=== PATIENT | female | born 1960 | race Caucasian/White ===

== ENCOUNTER → 2016-08-12 | Outpatient (CLI) | payer OTHER ==
[~2016-08-12] MED LIST: ANT25 PO; ATOR-22 PO; CETI10TA84 PO; ESTR0.3T PO; HYDR12.56 PO; IBUP-1050 PO; IRBE-37 PO
--- NOTE | 2016-08-12 12:25 | MAMMOGRAPHY REPORT ---
BILATERAL DIGITAL SCREENING MAMMOGRAM TOMOSYNTHESIS WITH CAD: 08/12/2016 TECHNIQUE: Breast tomosynthesis in addition to standard 2D mammography was performed. Current study was also evaluated with a Computer Aided Detection (CAD) system. COMPARISON: Comparison is made to exams dated: 08/10/2015 mammogram, 08/05/2014 mammogram, 07/25/2012 m ammogram, 08/01/2013 mammogram, 07/21/2011 mammogram, and 07/13/2010 mammogram - [facility]. BREAST COMPOSITION: There are scattered areas of fibroglandular density in both breasts. FINDINGS: No suspicious masses, calcifications, or areas of architectural distortion are noted in e ither breast. There has been no significant interval change compared to prior exams. Two small casey gn-appearing masses in the right lateral breast are stable compared to multiple prior exams. Bilate ral benign appearing calcifications are also not significantly changed. IMPRESSION: ACR BI-RADS CATEGORY 2: BENIGN There is no mammographic evidence of malignancy. A 1 year screening mammogram is recommended. The p atient will receive written notification of the results. Approximately 10% of breast cancers are not detected with mammography. A negative mammographic repor t should not delay biopsy if a clinically suggestive mass is present. Lee Ann Ortiz M.D. /:08/12/2016 07:46:44 Mechanical Applications Engineer: Linda CENTENO)(M), [facility] letter sent: Normal 1/2 BI-RADS Code: ACR BI-RADS Category 2: Benign
== END | disposition home or self-care (01) ==
LOC: C.MAMM 07:14
PROVIDERS: ATTEND Obstetrics & Gynecology
DX: Z12.31 Encounter for screening mammogram for malignant neoplasm of breast (principal)

== ENCOUNTER 2017-03-19 07:32 | Emergency (ER) | payer OTHER ==
[~2017-03-19] VITALS: Ht 157.5 cm; Wt 75.7 kg
[2017-03-19 07:34] VITALS: TEMP 36.5; Ht 157.5 cm; Wt 75.7 kg
[2017-03-19] MEDS ORDERED: DIAZEPAM INJ 5 MG/ML 2 ML CARP IV STA ×2 (07:56→09:12)
[2017-03-19] MEDS ORDERED: MECLIZINE HCL 25 MG TAB PO STA (07:56)
[2017-03-19] MEDS ORDERED: SODIUM CHLORIDE 0.9% 1000ML 1,000 ML IV STA (07:56)
[2017-03-19] MEDS ORDERED: ESTR0.3T PO (08:16)
[2017-03-19] MEDS ORDERED: HYDR12.56 PO (08:16)
[2017-03-19] MEDS ORDERED: CETI10TA84 PO (08:16)
[2017-03-19] MEDS ORDERED: IRBE-37 PO (08:16)
[2017-03-19] MEDS ORDERED: IBUP-1050 PO (08:16)
[2017-03-19] MEDS ORDERED: ATOR-22 PO (08:16)
[2017-03-19 08:31] LABS: BASO % 0.3 %; BASO ABS # 0.02 K/uL (0-0.2); COMPLETE YES; EOS % 4.2 %; HEMATOCRIT 39.9 % (37-47); IG% 0.2 %; LYMPH % 25.8 %; LYMPH ABS # 1.58 K/uL (1.2-3.4); MEAN CELL VOLUME 91.7 fL (80-100); MEAN CORPUSCULAR HEMOGLOBIN 32.2 pg (25-34); MEAN CORPUSCULAR HGB CONC 35.1 g/dl (32-36); MEAN PLATELET VOLUME 10.3 fL (7.4-10.4); MONO % 7.2 %; NEUT % 62.3 %; PLATELET COUNT 270 K/uL (130-400); RED BLOOD COUNT 4.35 M/uL (4.2-5.4); WHITE BLOOD COUNT 6.13 K/uL (4.8-10.8)
[2017-03-19 08:37] LABS: BLOOD UREA NITROGEN 19 mg/dl (7-18); BUN/CREATININE RATIO 21.5 (10-20); CALCIUM 9.1 mg/dl (8.5-10.1); CARBON DIOXIDE 27 mmol/L (21-32); CHLORIDE 107 mmol/L (98-107); CREATININE 0.88 mg/dl (0.60-1.20); GLUCOSE 90 mg/dl (70-99); POTASSIUM 4.2 mmol/L (3.5-5.1); SODIUM 140 mmol/L (136-145)
--- NOTE | 2017-03-19 08:54 | DIAGNOSTIC IMAGING REPORT ---
CT OF THE HEAD WITHOUT CONTRAST CLINICAL HISTORY: New onset vertigo. COMPARISON STUDY: No previous studies for comparison. CT DOSE: 537.48 mGy.cm TECHNIQUE: Helical axial images of the head were obtained without IV contrast. Automated exposure control was utilized for the study. A dose lowering technique was utilized adhering to the principles of ALARA. FINDINGS: No acute intracranial hemorrhage, midline shift or mass effect is present. Ventricular system is unremarkable. Basilar cisterns are patent. There are no extra-axial collections. White matter hypodensity suggests small vessel disease. There are no findings to suggest acute dural sinus thrombosis or acute territorial infarct. There is no significant calvarial abnormalities. Visualized portions of the sinuses and the mastoid air cells are clear. IMPRESSION: No acute intracranial findings. Electronically signed by: Gopal Brito M.D. 03/19/2017 8:53 AM Dictated Date/Time: 03/19/2017 8:44 AM
[2017-03-19] MEDS ORDERED: ONDANSETRON INJ 2 MG/ML 2 ML VIAL IV STA (09:12)
[2017-03-19 11:19] VITALS: BP 111/57; PULSE 57; O2SAT 100
--- NOTE | 2017-03-19 11:20 | DIAGNOSTIC IMAGING REPORT ---
BRAIN COMBO FOR IAC CLINICAL HISTORY: Persistent vertiginous symptoms. COMPARISON STUDY: Head CT March 19, 2017. TECHNIQUE: Utilizing a 1.5 Nia magnet and dedicated coil, multiplanar, multi echo imaging of the brain was performed pre and postcontrast administration with thin cut imaging through the internal auditory canals. Injection of 7.5 cc of Gadavist IV was uneventful. FINDINGS: There are no areas of restricted diffusion. No acute intracranial hemorrhage, midline shift or mass effect is present. Brain volume is normal. Ventricular system is normal. Basilar cisterns are patent. There are no extra-axial collections. Flow-voids for the major intracranial vessels are present. No mass or abnormal enhancement is identified within the internal auditory canals. There is no fluid within the mastoid air cells. There is no cerebellopontine angle mass. Coronal FLAIR sequence demonstrates multiple small white matter T2 hyperintense foci. Calvarial signal is maintained. There is mild mucosal thickening of the ethmoid sinuses. IMPRESSION: 1. No acute intracranial findings. 2. No abnormalities within the internal auditory canals. 3. No intracranial mass or pathologic enhancement. 4. Multiple small white matter T2 hyperintense foci which are nonspecific but likely reflect small vessel disease. Electronically signed by: Gopal Brito M.D. 03/19/2017 11:18 AM Dictated Date/Time: 03/19/2017 11:13 AM
[2017-03-19] MEDS ORDERED: ANT25 PO (11:52)
--- NOTE | 2017-03-19 11:52 | EMERGENCY ROOM VISIT NOTE ---
History Report prepared by Guevara: Gabrielle Calvert Under the Supervision of: Dr. Jeovany Lewis M.D. First contact with patient: 07:40 Chief Complaint: VERTIGO Stated Complaint: VERTIGO Nursing Triage Summary: for the past 2 days I have been light headed and dizzy. symptoms seem to be worse when laying down. History of Present Illness The patient is a 57 year old female who presents to the Emergency Room with complaints of an episode of vertigo starting 2 days ago. 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 The patient sates that she feels like she is falling and the world is spinning. She notes that it is worse with movement. She reports that she has not been able to sleep because of it. She states she thought she might be dehydrated, but notes she drank a lot of water yesterday with no relief. The patient complains of nausea, slight blurred vision, and a headache. She notes her headache is a 3/10 in severity and is a frontal headache. The patient denies double vision, hearing problems, weakness, numbness, vomiting, recent falls, head injuries, neck stiffness, abdominal pain, ear pain, diarrhea, urinary symptoms, and speech changes. Source of History: patient Onset: 2 days ago Position: other (global) Quality: other (global) Timing: other (episode) Modifying Factors (Worsening): movement Associated Symptoms: + headache, + nausea, No vomiting, No abdominal pain, No diarrhea, No urinary symptoms, No weakness, No numbness Note: The patient complains of not being able to sleep and slightly blurred vision. The patient denies double vision, hearing problems, recent falls, head injuries , neck stiffness, ear pain, and speech changes. Review of Systems See HPI for pertinent positives & negatives. A total of 10 systems reviewed and were otherwise negative. Past Medical & Surgical Medical Problems: (1) High cholesterol (2) HTN (hypertension) Surgical Problems: (1) H/O: hysterectomy (2) Previous section Family History No pertinent family history Social History Smoking Status: Never Smoker Alcohol Use: none Drug Use: none Marital Status: Housing Status: lives with significant other Current/Historical Medications Scheduled Atorvastatin (Lipitor), 20 MG PO DAILY Cetirizine (Zyrtec), 10 MG PO DAILY Estrogens, Conjugated (Premarin), 0.3 MG PO DAILY Hydrochlorothiazide (Hctz), 12.5 MG PO DAILY Ibuprofen (Advil), 400 MG PO HS Irbesartan (Avapro), 150 MG PO DAILY Scheduled PRN Meclizine HCl (Meclizine HCl), 1 TAB PO Q6H PRN for Dizziness or Vertigo Allergies Coded Allergies: No Known Allergies (Verified , 03/19/17) Physical Exam Vital Signs Date Time Temp Pulse Resp B/P (MAP) Pulse Ox O2 Delivery O2 Flow Rate FiO2 03/19/17 11:19 57 16 111/57 100 Room Air 03/19/17 09:40 87 18 111/74 99 03/19/17 08:37 77 20 108/77 99 Room Air 03/19/17 08:03 72 03/19/17 07:34 36.5 84 18 122/85 99 Room Air Physical Exam GENERAL: Patient is uncomfortable appearing and in mild distress. HEENT: No acute trauma, normocephalic atraumatic, mucous membranes moist, no nasal congestion, no scleral icterus. Ear- canals blocked with cerumen. NECK: No stridor, no adenopathy, no meningismus, trachea is midline. LUNGS: No dyspnea. Clear to auscultation and equal bilaterally. No wheeze, no rhonchi. HEART: Regular rate and rhythm. No murmurs, rubs, gallops appreciated. ABDOMEN: Soft, nontender, bowel sounds positive, no masses appreciated, no peritonitis. BACK: No midline tenderness, no CVA tenderness EXTREMITIES: Normal motion all extremities, no cyanosis, no edema. NEUROLOGIC: Alert and oriented, no acute motor or sensory deficits, no focal weakness, cranial nerves grossly intact. SKIN: No rash, no jaundice, no diaphoresis. Medical Decision & Procedures ER Provider Diagnostic Interpretation: Radiology results and stated below per my review and radiologist interpretation: CT OF THE HEAD WITHOUT CONTRAST CLINICAL HISTORY: New onset vertigo. COMPARISON STUDY: No previous studies for comparison. CT DOSE: 537.48 mGy.cm TECHNIQUE: Helical axial images of the head were obtained without IV contrast. Automated exposure control was utilized for the study. A dose lowering technique was utilized adhering to the principles of ALARA. FINDINGS: No acute intracranial hemorrhage, midline shift or mass effect is present. Ventricular system is unremarkable. Basilar cisterns are patent. There are no extra-axial collections. White matter hypodensity suggests small vessel disease. There are no findings to suggest acute dural sinus thrombosis or acute territorial infarct. There is no significant calvarial abnormalities. Visualized portions of the sinuses and the mastoid air cells are clear. IMPRESSION: No acute intracranial findings. Electronically signed by: Gopal Brito M.D. 03/19/2017 8:53 AM Dictated Date/Time: 03/19/2017 8:44 AM BRAIN COMBO FOR IAC CLINICAL HISTORY: Persistent vertiginous symptoms. COMPARISON STUDY: Head CT March 19, 2017. TECHNIQUE: Utilizing a 1.5 Nia magnet and dedicated coil, multiplanar, multi echo imaging of the brain was performed pre and postcontrast administration with thin cut imaging through the internal auditory canals. Injection of 7.5 cc of Gadavist IV was uneventful. FINDINGS: There are no areas of restricted diffusion. No acute intracranial hemorrhage, midline shift or mass effect is present. Brain volume is normal. Ventricular system is normal. Basilar cisterns are patent. There are no extra-axial collections. Flow-voids for the major intracranial vessels are present. No mass or abnormal enhancement is identified within the internal auditory canals. There is no fluid within the mastoid air cells. There is no cerebellopontine angle mass. Coronal FLAIR sequence demonstrates multiple small white matter T2 hyperintense foci. Calvarial signal is maintained. There is mild mucosal thickening of the ethmoid sinuses. IMPRESSION: 1. No acute intracranial findings. 2. No abnormalities within the internal auditory canals. 3. No intracranial mass or pathologic enhancement. 4. Multiple small white matter T2 hyperintense foci which are nonspecific but likely reflect small vessel disease. Electronically signed by: Gopal Brito M.D. 03/19/2017 11:18 AM Dictated Date/Time: 03/19/2017 11:13 AM Laboratory Results 03/19/17 08:00 Red Blood Count 4.35, Mean Corpuscular Volume 91.7, Mean Corpuscular Hemoglobin 32.2, Mean Corpuscular Hemoglobin Concent 35.1, Mean Platelet Volume 10.3, Neutrophils (%) (Auto) 62.3, Lymphocytes (%) (Auto) 25.8, Monocytes (%) (Auto) 7.2, Eosinophils (%) (Auto) 4.2, Basophils (%) (Auto) 0.3, Neutrophils # (Auto) 3.82, Lymphocytes # (Auto) 1.58, Monocytes # (Auto) 0.44, Eosinophils # (Auto) 0.26, Basophils # (Auto) 0.02 03/19/17 08:00 Test 03/19/17 08:00 White Blood Count 6.13 K/uL (4.8-10.8) Red Blood Count 4.35 M/uL (4.2-5.4) Hemoglobin 14.0 g/dL (12.0-16.0) Hematocrit 39.9 % (37-47) Mean Corpuscular Volume 91.7 fL (80-100) Mean Corpuscular Hemoglobin 32.2 pg (25-34) Mean Corpuscular Hemoglobin Concent 35.1 g/dl (32-36) Platelet Count 270 K/uL (130-400) Mean Platelet Volume 10.3 fL (7.4-10.4) Neutrophils (%) (Auto) 62.3 % Lymphocytes (%) (Auto) 25.8 % Monocytes (%) (Auto) 7.2 % Eosinophils (%) (Auto) 4.2 % Basophils (%) (Auto) 0.3 % Neutrophils # (Auto) 3.82 K/uL (1.4-6.5) Lymphocytes # (Auto) 1.58 K/uL (1.2-3.4) Monocytes # (Auto) 0.44 K/uL (0.11-0.59) Eosinophils # (Auto) 0.26 K/uL (0-0.5) Basophils # (Auto) 0.02 K/uL (0-0.2) RDW Standard Deviation 43.2 fL (36.4-46.3) RDW Coefficient of Variation 12.7 % (11.5-14.5) Immature Granulocyte % (Auto) 0.2 % Immature Granulocyte # (Auto) 0.01 K/uL (0.00-0.02) Anion Gap 6.0 mmol/L (3-11) Est Creatinine Clear Calc Drug Dose 65.6 ml/min Estimated GFR () 83.4 Estimated GFR (Non- 71.9 BUN/Creatinine Ratio 21.5 (10-20) Calcium Level 9.1 mg/dl (8.5-10.1) Troponin I < 0.015 ng/ml (0-0.045) Laboratory results as reviewed by me. Medications Administered Medications (Trade) Dose Ordered Sig/Roseanne Route Start Time Stop Time Status Last Admin Dose Admin Sodium Chloride 1,000 ml @ 999 mls/hr Q1H1M STAT IV 03/19/17 07:56 03/19/17 08:56 DC 03/19/17 08:16 999 MLS/HR Diazepam (Valium Inj) 2.5 mg NOW STAT IV 03/19/17 07:56 03/19/17 07:58 DC 03/19/17 08:15 2.5 MG Meclizine HCl (Antivert Tab) 25 mg NOW STAT PO 03/19/17 07:56 03/19/17 07:58 DC 03/19/17 08:15 25 MG Ondansetron HCl (Zofran Inj) 4 mg NOW STAT IV 03/19/17 09:12 03/19/17 09:13 DC 03/19/17 09:27 4 MG Diazepam (Valium Inj) 5 mg NOW STAT IV 03/19/17 09:12 03/19/17 09:13 DC 03/19/17 09:28 5 MG ECG Indication: nausea Rate (beats per minute): 66 Rhythm: normal sinus Findings: no acute ischemic change, no ectopy ED Course 0756: Ordered Antivert Tab 25 mg PO, Diazepam 2.5 mg IV, NSS 1000 ml @ 999 mls/ hr IV. 0759: The patient was evaluated in room A11B. A complete history and physical exam was performed. 0906: I reevaluated the patient and she states her symptoms are not changed. She states she is very nauseous and asked for nausea medication. 0912: Ordered Valium Inj 5 mg IV, Zofran Inj 4 mg IV. 1201: Reevaluated the patient. Discussed results and discharge instructions: she verbalized understanding and agreement. The patient is ready for discharge. Medical Decision Differential diagnoses include Benign positional vertigo, Dehydration, Hypovolemia, Anemia, Tumor, Infection, Hypoglycemia, Electrolyte abnormalities, Cardiac sources, Intracerebral event, Toxicologic, Neurologic, as well as others were entertained. 57 yr old female with 2 days vertigo gradually worsening. No neuro deficits and no significant nystagmus appreciated. Does have significant cerumen impaction bilaterally though this chronic without ear pain. Given initial meds and work-up initiated. CT head negative and labs/ekg unremarkable. Not much improvement with initial meds thus further Valium given and patient sent to MRI for stroke rule out. MRI consistent with age and no acute findings. She is stable, finally starting to feel better and comfortable with going home. Antivert given for outpatient management. Reviewed symptoms requiring rted and need to follow up with PCP. Head Trauma GCS Score: 15 Medication Reconcilliation Current Medication List: was personally reviewed by me Blood Pressure Screening Patient's blood pressure: Normal blood pressure Impression Primary Impression: Vertigo Scribe Attestation The scribe's documentation has been prepared under my direction and personally reviewed by me in its entirety. I confirm that the note above accurately reflects all work, treatment, procedures, and medical decision making performed by me. Departure Information Dispostion Home / Self-Care Prescriptions Meclizine HCl (Meclizine HCl) 25 Mg Tab 1 TAB PO Q6H Y for Dizziness or Vertigo, #20 TAB Prov: Jeovany Lewis M.D. 03/19/17 Referrals Heidi Matson, (PCP) Forms HOME CARE DOCUMENTATION FORM, IMPORTANT VISIT INFORMATION, WORK / SCHOOL INSTRUCTIONS Patient Instructions ED Vertigo Unspecified, [facility]
== END 2017-03-19 12:10 | disposition home or self-care (01) ==
LOC: C.EDB 07:35 → C.EDA 12:10
DX: R42 Dizziness and giddiness (principal); R11.0 Nausea; E78.00 Pure hypercholesterolemia, unspecified; H61.23 Impacted cerumen, bilateral; I10 Essential (primary) hypertension; Z90.710 Acquired absence of both cervix and uterus; Z79.899 Other long term (current) drug therapy

== ENCOUNTER → 2017-08-02 | Outpatient (CLI) | payer OTHER | END | disposition home or self-care (01) | LOC: C.LAB1850 13:07 | PROVIDERS: ATTEND Obstetrics & Gynecology | DX: R39.9 Unspecified symptoms and signs involving the genitourinary system (principal) ==

== ENCOUNTER → 2017-08-15 | Outpatient (CLI) | payer OTHER ==
--- NOTE | 2017-08-16 15:22 | MAMMOGRAPHY REPORT ---
BILATERAL DIGITAL SCREENING MAMMOGRAM TOMOSYNTHESIS WITH CAD: 08/15/2017 CLINICAL HISTORY: Routine screening. Patient has no complaints. TECHNIQUE: Breast tomosynthesis in addition to standard 2D mammography was performed. Current study was also evaluated with a Computer Aided Detection (CAD) system. COMPARISON: Comparison is made to exams dated: 08/12/2016 mammogram, 08/10/2015 mammogram, 08/05/2014 m ammogram, 08/01/2013 mammogram, 07/25/2012 mammogram, and 07/13/2010 mammogram - [facility] enter. BREAST COMPOSITION: There are scattered areas of fibroglandular density in both breasts. FINDINGS: There is a lobulated 9 mm mass with associated calcifications in the right upper outer evonne drant, for which spot magnification views and possible breast ultrasound are recommended for further evaluation. The remainder of both breasts are stable compared to prior exams, without suspicious masses, calcific ations, or areas of architectural distortion noted. 11 mm mass within the right upper outer quadrant posteriorly is stable compared to multiple prior exams. IMPRESSION: ACR BI-RADS CATEGORY 0: INCOMPLETE EVALUATION: NEED ADDITIONAL IMAGING EVALUATION Right breast mass and associated calcifications, for which additional imaging evaluation is recommend ed. The patient will be called to schedule an appointment. Approximately 10% of breast cancers are not detected with mammography. A negative mammographic report should not delay biopsy if a clinically suggestive mass is present. Lee Ann Ortiz M.D. /:08/15/2017 16:15:21 Truant Officer: Alycia Montes, [facility] letter sent: Addl Imaging 0 BI-RADS Code: ACR BI-RADS Category 0: Incomplete Evaluation: Need Additional Imaging Evaluation
== END | disposition home or self-care (01) ==
LOC: C.MAMM 07:22
PROVIDERS: ATTEND Obstetrics & Gynecology
DX: Z12.31 Encounter for screening mammogram for malignant neoplasm of breast (principal); N63.10 Unspecified lump in the right breast, unspecified quadrant

== ENCOUNTER → 2017-08-25 | Outpatient (CLI) | payer OTHER ==
--- NOTE | 2017-08-25 15:28 | MAMMOGRAPHY REPORT ---
UNILATERAL RIGHT DIGITAL DIAGNOSTIC MAMMOGRAM AND TARGETED RIGHT ULTRASOUND: 08/25/2017 CLINICAL HISTORY: Callback from screening mammogram for right breast mass and associated calcificatio ns. TECHNIQUE: Spot magnification right cc and ML views were obtained. COMPARISON: Comparison is made to exams dated: 08/15/2017 mammogram, 08/12/2016 mammogram, 08/10/2015 m ammogram, 08/05/2014 mammogram, 08/01/2013 mammogram, and 07/25/2012 mammogram - [facility] nter. BREAST COMPOSITION: There are scattered areas of fibroglandular density in the right breast. FINDINGS: Spot magnification views demonstrate a lobulated mass with obscured margins and associated internal calcifications within the right lateral breast at approximately 9:00, measuring approximatel y 11 mm. The calcifications are shown to layer on the lateral view, suggestive of milk of calcium la yering within cysts. An oval 13 mm mass within the right upper outer quadrant posteriorly is stable c ompared to multiple prior exams. Targeted ultrasound was performed of the right breast in the region of the mammographic mass. In the right breast at 8:00, 3 cm from the nipple, there is a round anechoic circumscribed 4 x 4 mm mass, w hich contains an echogenic calcification and is consistent with a benign cyst. Contiguous with the c yst are a few prominent milk ducts, with some echogenic foci seen within the milk ducts during real-t osiris imaging which correspond with some of the mammographic calcifications. The findings are probably benign and likely represent fibrocystic changes with internal milk of calcium. Recommend follow-up diagnostic tomosynthesis mammograms and possible ultrasound of the right breast in 6 months to confir m stability. IMPRESSION: ACR-BI-RADS CATEGORY 3: PROBABLY BENIGN, TARGETED ULTRASOUND ACR-BI-RADS CATEGORY 3: PRO BABLY BENIGN The mammographic mass corresponds with a benign 4 mm cyst and contiguous milk ducts in the right 8:00 breast on ultrasound. Calcifications seen within the cyst and milk ducts are shown to layer on the l ateral view and are felt to represent milk of calcium. Findings are probably benign and likely repre sent fibrocystic changes. Recommend follow-up diagnostic tomosynthesis mammograms and possible ultra sound of the right breast in 6 months to confirm stability. The patient has been verbally notified of the results. Approximately 10% of breast cancers are not detected with mammography. A negative mammographic report should not delay biopsy if a clinically suggestive mass is present. Lee Ann Ortiz M.D. ah/:08/25/2017 09:31:43 Pet Feeder: Teri CENTENO)(Evaristo), [facility] letter sent: Follow Up Recommended 3 BI-RADS Code: ACR-BI-RADS Category 3: Probably Benign Ultrasound BI-RADS: ACR-BI-RADS Category 3: Pr obably Benign
== END | disposition home or self-care (01) ==
LOC: C.MAMM 08:29
PROVIDERS: ATTEND Obstetrics & Gynecology
DX: R92.8 Other abnormal and inconclusive findings on diagnostic imaging of breast (principal); N64.89 Other specified disorders of breast

== ENCOUNTER → 2018-02-21 | Outpatient (CLI) | payer OTHER ==
--- NOTE | 2018-02-21 13:39 | MAMMOGRAPHY REPORT ---
UNILATERAL RIGHT DIGITAL DIAGNOSTIC MAMMOGRAM TOMOSYNTHESIS WITH CAD AND TARGETED RIGHT ULTRASOUND: CLINICAL HISTORY: Short interval follow-up of right breast mass and calcifications. TECHNIQUE: The study was acquired using full field digital technology and interpreted from soft copy. Breast tomosynthesis in addition to standard 2D mammography was performed. Current study was also ev aluated with a Computer Aided Detection (CAD) system. Right CC and MLO 2D and tomosynthesis images a nd spot magnification right CC and ML views were obtained. COMPARISON: Comparison is made to exams dated: 08/25/2017 mammogram, 08/15/2017 mammogram, 08/12/2016 ma mmogram, 08/10/2015 mammogram, 08/05/2014 mammogram, and 08/01/2013 mammogram - [facility] nt. BREAST COMPOSITION: There are scattered areas of fibroglandular density in right breast. FINDINGS: Again noted is a lobulated mass with obscured margins and associated internal calcifications in the r ight breast at approximately 9:00 measuring approximately 8 mm. The calcifications are shown to laye r within the mass, better seen on the prior Aug 2017 exam, consistent with milk of calcium layering w ithin a cyst. Findings are stable compared to the Aug 2017 exam. The remainder of the right breast is stable compared to the prior exams, without suspicious masses, calcifications, or areas of archite ctural distortion noted. Lobulated mass within the right upper outer quadrant posteriorly is stable compared to multiple prior exams. Targeted ultrasound was performed of the right 8:00 breast in the region of the mammographic mass. I n the right 8:00 breast, 3 cm from the nipple, again noted is a round circumscribed anechoic 4 x 4 mi llimeter mass, consistent with a benign cyst. Contiguous with the cyst are a few prominent milk duct s. These findings correspond with the mammographic findings and are stable compared to the August 2017 exam and are consistent with fibrocystic changes with internal milk of calcium. IMPRESSION: ACR BI-RADS CATEGORY 2: BENIGN, ULTRASOUND ACR BI-RADS CATEGORY 2: BENIGN The mammographic mass and calcifications in the right 8:00 breast are stable compared to the August 2017 exam and is consistent with a benign cyst with internal milk of calcium. There is no mammograp hic or sonographic evidence of malignancy. Return to annual mammogram screening schedule is recommend ed, due August 2018. The patient has been verbally notified of the results. Some breast cancers are not detected with mammography. A negative mammographic report should not maranda y biopsy if a clinically suggestive mass is present. Lee Ann Ortiz M.D. ah/:02/21/2018 08:23:10 Confectionery Drops Machine Operator: RT Lionel(R)(M), [facility] letter sent: Normal / OVERALL STUDY BIRADS: 2 Benign
== END | disposition home or self-care (01) ==
LOC: C.MAMM 07:49
PROVIDERS: ATTEND Obstetrics & Gynecology
DX: R92.8 Other abnormal and inconclusive findings on diagnostic imaging of breast (principal); N63.10 Unspecified lump in the right breast, unspecified quadrant

== ENCOUNTER 2021-08-27 06:47 | Observation (INO) ==
--- NOTE | 2021-06-08 15:46 | PAT Medication Instructions ---
Medication Instructions Date of Service June 08, 2021 Home Medications atorvastatin 20 mg tablet (Lipitor) 20 mg PO QAM cetirizine 10 mg tablet (Zyrtec) 10 mg PO QAM hydrochlorothiazide 12.5 mg capsule 12.5 mg PO QAM ibuprofen 400 mg tablet 400 - 600 mg PO BID irbesartan 75 mg tablet 75 mg PO QAM melatonin 5 mg tablet 5 mg PO HS ASK your surgeon for instructions ibuprofen 400 mg tablet 400 - 600 mg PO BID DO NOT take the morning of surgery cetirizine 10 mg tablet (Zyrtec) 10 mg PO QAM hydrochlorothiazide 12.5 mg capsule 12.5 mg PO QAM irbesartan 75 mg tablet 75 mg PO QAM Take morning of surgery With a small sip of water, OTHERWISE NOTHING TO EAT OR DRINK AFTER MIDNIGHT: atorvastatin 20 mg tablet (Lipitor) 20 mg PO QAM Take evening before surgery melatonin 5 mg tablet 5 mg PO HS Other Notes If you have any questions please call us at [phone] or [phone] or [phone] or [phone]
--- NOTE | 2021-06-14 14:14 | Anesthesiology Consultation ---
Date of Service June 14, 2021 Assessment & Plan (1) Encounter for pre-operative examination: - COVID screening: Per assessment on 06/14: No known COVID-19 positive contacts or current COVID-19 related symptoms. Travel screen- Patient drove to [facility] 06/08 (drove directly to bridal store to drop of daughter's bridal gown and then directly returned home, wore mask). Patient vaccinated + booster. Surgeon arranging preop COVID testing. Awaiting results. - Outpatient joint pathway: Per OR booking comments/patient, plan for outpatient joint program. Patient seen at [facility] 06/14. Patient is an acceptable risk to proceed as possible outpatient joint pathway pending perioperative course. Surgeon's office arranging post-op home management. Chart Review Chart Review: Acceptable Risk for Surgery and Patient seen in Pre Admission Testing Teaching & Discussion Pre-Anesthesia Teaching/Discussion Notes: Instructed NPO after midnight before surgery,except medications with 15 cc of water. Medication instructions provided according to the [facility] guidelines. History Surgery Operation Date: 07/23/21 08:40 Proposed Procedures p Right Total Knee Arthroplasty - Nas Bentley, Height/Weight Height: 5 ft 2 in Weight: 65.7 kg Allergies Allergy/AdvReac Type Severity Reaction Status Date / Time cephalexin [From Keflex] AdvReac Unknown ?Dyspepsia Verified 06/09/21 14:42 Penicillins AdvReac Unknown Gastrointestinal Verified 06/08/21 15:13 Upset telithromycin [From Ketek] AdvReac Unknown Gastrointestinal Verified 06/08/21 15:13 Upset Medications Home Medications Medication Instructions Recorded Confirmed Last Taken atorvastatin 20 mg tablet (Lipitor) 20 mg PO QAM 10/12/18 06/08/21 09/16/19 cetirizine 10 mg tablet (Zyrtec) 10 mg PO QAM 10/12/18 06/08/21 09/16/19 hydrochlorothiazide 12.5 mg capsule 12.5 mg PO QAM 10/12/18 06/08/21 09/16/19 ibuprofen 400 mg tablet 400 - 600 mg PO BID 10/12/18 06/08/21 09/16/19 21:30 irbesartan 75 mg tablet 75 mg PO QAM 09/10/19 06/08/21 09/16/19 melatonin 5 mg tablet 5 mg PO HS 06/08/21 06/08/21 Unknown 3-in-1 Commode #1 ea 06/14/21 06/14/21 Unknown Wheeled Walker #1 ea 06/14/21 06/14/21 Unknown Past Medical History Medical History High cholesterol History of endometriosis HTN (hypertension) Osteoarthritis Exercise / Class Metabolic Activity II 4-5 Yardwork/Stairs/Walk up hill (one FS (no CP, no SOB)) Past Family History Family History Mother Post-operative nausea and vomiting Other Heart disease Hypertension Past Surgical History Surgical History History of appendectomy History of colonoscopy Colonoscopy (09/17/19): MAC at [facility] History of eye surgery Left eye conjunctival cyst excision (08/19/19): MAC at [facility] History of total abdominal hysterectomy and bilateral salpingo-oophorectomy Nausea and vomiting after administration of anesthetic agent Previous section x 2 Past Anesthesia History No Hx of Anesthesia Complications (except PONV) and No Family Hx of Anesthesia Complications (except mother with PONV) History of PONV History of PONV (Worse with more remote surgeries*) and Hx of Motion Sickness (+ hx vertigo (improved)) Social History Smoking Status: Never smoker Do You Dip or Chew Tobacco: No Hx Alcohol Use: No Hx Substance Use: No substance use type: does not use Review of Systems Patient denies chest pain, shortness of breath, dyspnea on exertion, fever, c hills, cough, wheezing, palpitations. Physical Exam Vital Signs VITALS BP 132/75 P 72 TEMP 98.1 SP02 100%RA RESP 16 PHYSICAL Full cervical extension range of motion. Full TMJ range of motion. TMD 3.5 finger breaths Mallampati Score 1 Dentition: intact Lungs: clear throughout to auscultation Cardiac: regular rate and rhythm, no murmurs noted Spine: normal Carotid arteries: negative bruit Extremities: no edema Lab Results Anesthesia Preop Results Results Anesthesia Widget: WBC 7.24 K/uL (4.8-10.8) 06/14/21 Hgb 12.8 g/dL (12.0-16.0) 06/14/21 Hct 37.7 % (37-47) 06/14/21 Plt 296 K/uL (130-400) 06/14/21 Na 140 mmol/L (136-145) 06/14/21 K 3.8 mmol/L (3.5-5.1) 06/14/21 Cl 107 mmol/L (98-107) 06/14/21 CO2 26 mmol/L (21-32) 06/14/21 BUN 20 mg/dl (7-18) H 06/14/21 Creat 1.20 mg/dl (0.6-1.2) 06/14/21 Glucose Level 85 mg/dl (70-99) 06/14/21 PT 10.0 Seconds (9.0-12.0) 06/14/21 PTT 25.9 Seconds (21.0-31.0) 06/14/21 INR 1.0 (0.9-1.1) 06/14/21 Blood Type AB Positive 06/14/21 Antibody Screen NEGATIVE 06/14/21 Testing Electrocardiogram Date: 06/14/21 NSR at 63bpm. Chest X-Ray Date: 06/14/21 FINDINGS: Frontal and lateral radiographs of the chest demonstrate the cardiomediastinal silhouette to be within normal limits. The lungs are clear of alveolar opacities. There is no evidence for effusion bilaterally. There is no evidence for vascular congestion. There is no acute osseous pathology. IMPRESSION: No acute cardiopulmonary disease.
--- NOTE | 2021-08-25 10:06 | Anesthesiology Consultation ---
Date of Service August 25, 2021 Assessment & Plan (1) Encounter for pre-operative examination: Chart Review Chart Review: Acceptable Risk for Surgery and Patient NOT seen in Pre Admission Testing Consults Requested none History Surgery Operation Date: 07/23/21 08:40 Proposed Procedures p Right Total Knee Arthroplasty - Nas Bentley DO Operation Date: 08/27/21 08:50 Proposed Procedures p OP: Right Total Knee Arthroplasty - Nas Bentley DO Height/Weight Height: 5 ft 2 in Weight: 68.039 kg Allergies Allergy/AdvReac Type Severity Reaction Status Date / Time cephalexin [From Keflex] AdvReac Mild ?Dyspepsia Verified 08/24/21 14:52 Penicillins AdvReac Mild Gastrointestinal Verified 08/24/21 14:52 Upset telithromycin [From Ketek] AdvReac Mild Gastrointestinal Verified 08/24/21 14:52 Upset Medications Home Medications Medication Instructions Recorded Confirmed Last Taken atorvastatin 20 mg tablet (Lipitor) 20 mg PO QAM 10/12/18 08/24/21 09/16/19 cetirizine 10 mg tablet (Zyrtec) 10 mg PO QAM 10/12/18 08/24/21 09/16/19 hydrochlorothiazide 12.5 mg capsule 12.5 mg PO QAM 10/12/18 08/24/21 09/16/19 ibuprofen 400 mg tablet 400 - 600 mg PO BID 10/12/18 08/24/21 09/16/19 21:30 irbesartan 75 mg tablet 75 mg PO QAM 09/10/19 08/24/21 09/16/19 melatonin 5 mg tablet 5 mg PO HS 06/08/21 08/24/21 Unknown 3-in-1 Commode #1 ea 06/14/21 06/14/21 Unknown Wheeled Walker #1 ea 06/14/21 06/14/21 Unknown multivit with 1 tab PO HS 08/24/21 08/24/21 Unknown cxxpoglq-uxix-FI-lutein 8 mg iron-400 mcg-300 mcg tablet (Centrum Silver Women) Past Medical History Medical History High cholesterol History of endometriosis HTN (hypertension) Osteoarthritis Past Family History Family History Mother Post-operative nausea and vomiting Other Heart disease Hypertension Past Surgical History Surgical History History of appendectomy History of colonoscopy Colonoscopy (09/17/19): MAC at [facility] History of eye surgery Left eye conjunctival cyst excision (08/19/19): MAC at [facility] History of total abdominal hysterectomy and bilateral salpingo-oophorectomy Nausea and vomiting after administration of anesthetic agent Previous section x 2 Social History Smoking Status: Never smoker Do You Dip or Chew Tobacco: No Hx Alcohol Use: Yes Alcohol type: hard liquor alcohol intake frequency: holidays/special occasions only Hx Substance Use: No substance use type: does not use Testing Electrocardiogram Date: 06/14/21 Findings: + NSR @
--- NOTE | 2021-08-26 12:34 | History & Physical Report ---
Date of Service August 26, 2021 Assessment & Plan (1) Osteoarthritis of right knee: We will proceed with a right total knee arthroplasty. Postoperatively she will be in our outpatient joint protocol. She will be given aspirin for DVT prophylaxis and discharged home on oral pain medications. She plans to use Synoste Oy upon discharge. History of Present Illness Chief Complaint: Osteoarthritis of the right knee. Primary Care Provider: Julianna Hobson MD Lindsay is a pleasant 61-year-old female has been dealing with chronic increasing right knee pain. She has failed extensive conservative treatment including physical therapy, multiple injections, and activity modification. MRI shows significant osteoarthritis of the right knee. After failing conservative treatment, she has elected to proceed with a right total knee arthroplasty. Allergies Allergy/AdvReac Type Severity Reaction Status Date / Time cephalexin [From Keflex] AdvReac Mild ?Dyspepsia Verified 08/24/21 14:52 Penicillins AdvReac Mild Gastrointestinal Verified 08/24/21 14:52 Upset telithromycin [From Ketek] AdvReac Mild Gastrointestinal Verified 08/24/21 14:52 Upset Home Medications Medication Instructions Recorded Confirmed Type atorvastatin 20 mg tablet (Lipitor) 20 mg PO QAM 10/12/18 08/24/21 History cetirizine 10 mg tablet (Zyrtec) 10 mg PO QAM 10/12/18 08/24/21 History hydrochlorothiazide 12.5 mg capsule 12.5 mg PO QAM 10/12/18 08/24/21 History ibuprofen 400 mg tablet 400 - 600 mg PO BID 10/12/18 08/24/21 History irbesartan 75 mg tablet 75 mg PO QAM 09/10/19 08/24/21 History melatonin 5 mg tablet 5 mg PO HS 06/08/21 08/24/21 History 3-in-1 Commode #1 ea 06/14/21 06/14/21 Rx Wheeled Walker #1 ea 06/14/21 06/14/21 Rx multivit with 1 tab PO HS 08/24/21 08/24/21 History bqnrhjkm-kbum-IB-lutein 8 mg iron-400 mcg-300 mcg tablet (Centrum Silver Women) Past Med/Surg History Medical History High cholesterol History of endometriosis HTN (hypertension) Osteoarthritis Surgical History History of appendectomy History of colonoscopy Colonoscopy (09/17/19): MAC at [facility] History of eye surgery Left eye conjunctival cyst excision (08/19/19): MAC at [facility] History of total abdominal hysterectomy and bilateral salpingo-oophorectomy Nausea and vomiting after administration of anesthetic agent Previous section x 2 Family History Mother Post-operative nausea and vomiting Other Heart disease Hypertension Social History Smoking Status: Never smoker Second Hand Exposure: No; Hx Alcohol Use: Yes Alcohol type: hard liquor Hx Substance Use: No Preferred Language: Welsh Communication Ability: Effective Tuck Pointer Required: No Beliefs That Will Affect Care: None marital status: Current Living Situation: Spouse current occupational status: retired Feels Safe at Home: Yes Assistive Devices: Contacts and Glasses Review of Systems All systems reviewed & are unremarkable except as noted in HPI & below. Physical Exam On physical examination of the right knee, she has a slight varus deformity. She has pain along the medial joint line and the distal medial femoral condyle. She has a trace effusion. Constitutional WD/WN, vitals as above Eyes PERRL, conjunctivae normal, anicteric sclerae ENMT external ear and nose normal, oropharynx normal Neck trachea midline, no thyromegaly Respiratory normal respiratory effort Cardiovascular RRR, no murmur, no edema Gastrointestinal (Abdomen) normal bowel sounds, soft, nontender, no hepatosplenomegaly Psychiatric A+Ox3, euthymic affect Results & Data Results & Data Laboratory Results . Diagnostic Findings Physical exam of the right knee shows some mild to moderate osteoarthritis mostly involving the medial compartment of the right knee. MRI of the right knee does show advanced osteoarthritis mostly involving the medial compartment. PG Care Time/CCT Total # of Minutes Spent Total Time Spent with Patient: Total time spent is greater than 50% in coordination of care (as documented) at patient's floor/unit and/or counseling patient: Coding Level of Care Code None Diagnoses Osteoarthritis of right knee M17.11
[~2021-08-27 06:47] MED LIST changes: +ACETAMINOPHEN 500 MG TAB PO SCH; -ANT25 PO; -ATOR-22 PO; +BUPIVACAINE 0.25% 30 ML VIAL ONE; -CETI10TA84 PO; +DEXAMETHASONE SOD INJ 4 MG/ML VIAL ONE; +EPINEPHrine INJ 1 MG/ML AMP ONE; -ESTR0.3T PO; +FAMOTIDINE 20 MG TAB PO SCH; +GABAPENTIN 600 MG DOSE PO SCH; -HYDR12.56 PO; -IBUP-1050 PO; -IRBE-37 PO; +Ketorolac (*for OR use only*) 30 MG, dexAMETHasone 4 MG, KETAMINE HCL (**OR use only) 1... INFIL SCH; +LIDOCAINE 2%/EPINEPHRINE 1:200,000 20 ML SDV ONE; +LR 15ML/HR IV SCH; +LR 60ML/HR IV SCH; +TRANEXAMIC ACID 1,000 MG **IV Intra-op IV SCH; +TRANEXAMIC ACID 1,000 MG **IV Pre-op IV SCH; +ceFAZolin 1000MG 1,000 MG/7.5 ML SYR IV SCH; +dexAMETHasone 4 MG TAB PO SCH
[2021-08-27 07:29] LABS: Basophils # (auto) 0.02 K/uL (0-0.2); Basophils % (auto) 0.4 %; Eosinophils # (auto) 0.16 K/uL (0-0.5); Eosinophils % (auto) 3.3 %; Hematocrit (blood only) 40.8 % (37-47); Hemoglobin 13.9 g/dL (12.0-16.0); Lymphocytes # (auto) 1.49 K/uL (1.2-3.4); Lymphocytes % (auto) 30.7 %; Mean Corpuscular Hemoglobin 31.9 pg (25-34); Mean Corpuscular Volume 93.6 fL (80-100); Mean Platelet Volume 9.9 fL (7.4-10.4); Monocytes # (auto) 0.38 K/uL (0.11-0.59); Monocytes % (auto) 7.8 %; Neutrophils # (auto) 2.81 K/uL (1.4-6.5); Neutrophils % (auto) 57.8 %; Platelet Count 286 K/uL (130-400); RDW Coefficient of Variation 12.6 % (11.5-14.5); RDW Standard Deviation 43.2 fL (36.4-46.3); Red Blood Count 4.36 M/uL (4.2-5.4); White Blood Count 4.86 K/uL (4.8-10.8)
[2021-08-27 07:40] LABS: Mean Corpuscular Hgb Conc 34.1 g/dL (32-36)
[2021-08-27] MEDS ORDERED: fentaNYL citrate 100 MCG/2 ML VIAL ONE (07:45)
[2021-08-27] MEDS ORDERED: MIDAZOLAM HCL 1 MG/ML 2ML VIAL ONE ×2 (07:45)
[2021-08-27 07:52] LABS: BUN Creatinine Ratio 26.3 (10-20); Calcium 9.4 mg/dl (8.5-10.1); Creatinine Clr Calc Pharmacy 69.1 ml/min; Est GFR (African American) 96.8 ml/min; Est GFR (Non-African American) 83.5 ml/min
[2021-08-27 07:58] LABS: Partial Thromboplastin Time 25.4 Seconds (21.0-31.0)
[2021-08-27] MEDS ORDERED: fentaNYL citrate 100 MCG/2 ML VIAL IV PRN (08:16)
[2021-08-27] MEDS ORDERED: ePHEDrine sulfate 50 MG/ML AMP IV PRN (08:16)
[2021-08-27] MEDS ORDERED: ATROPINE SULFATE 0.1 MG/ML 10ML SYR IV PRN (08:16)
[2021-08-27] MEDS ORDERED: ONDANSETRON INJ 2 MG/ML 2 ML VIAL IV PRN (08:16)
[2021-08-27] MEDS ORDERED: PROMETHAZINE HCL 6.25 MG in SODIUM CHLORIDE 0.9% 50 ML IV PRN (08:16)
--- NOTE | 2021-08-27 08:40 | History & Physical Bridge Note ---
Date of Service August 27, 2021 History & Physical Bridge Note I have examined the patient, reviewed the History & Physical and in the interval since the performance of the History & Physical I have noted the following changes of clinical significance: no changes noted
[2021-08-27] MEDS ORDERED: ORTHO JOINT ANESTHETIC ONE (09:02)
[2021-08-27] MEDS ORDERED: PROPOFOL IV EMULSION 10 MG/ML 20 ML VIAL IV ONE (09:40)
--- NOTE | 2021-08-27 10:36 | Operative Report ---
PG Post Operative Report Pre & Post Diagnosis Operation Date: 07/23/21 08:40 <No data on this case meets the specified criteria> Operation Date: 08/27/21 08:50 Pre-Op Diagnosis: Degenerative Joint Disease Right Knee Post-Op Diagnosis: Degenerative Joint Disease Right Knee I identified the patient and participated in the time-out.: Yes Procedure Operation Date: 07/23/21 08:40 <No data on this case meets the specified criteria> Operation Date: 08/27/21 08:50 Actual Procedures p Right Total Knee Arthroplasty, Cemented(Right) - Nas Bentley DO Surgeon Nas Bentley DO [employer] Nas Goodman PAC Estimated Blood Loss 10 Findings Consistent with Post-Op Diagnosis Specimens Right femoral and tibial bone Complications none Disposition Disposition: Recovery Room Indications Lindsay is a pleasant 61-year-old female who is been doing with chronic worsening right knee pain. X-rays and clinical examination have been diagnostic for advanced osteoarthritis of the right knee. After failing conservative tr eatment, she has elected to proceed with a right total knee arthroplasty. Description of Procedure Implants used: I used a Alicia Persona total knee arthroplasty system with a size 5 narrow femur, C tibia, 31 oval patella, and a size 12 medial congruent polyethylene bearing. All components were cemented in place with Biomet cement. Lindsay arrived [facility] for the above procedure. She was seen in the preoperative holding area and the operative extremity was identified and signed. She was given a preoperative antibiotic, TXA, and epidural anesthetic and an adductor nerve block. She was taken back to the operating room and laid on the table in supine position. She was given basic sedation. The operative knee was then prepped and draped in sterile fashion. A timeout was done, and the patient and the operative extremity was properly identified. A midline incision was made directly over the patella. Dissection was taken down to the extensor mechanism. A subvastus arthrotomy was used. The medial retinaculum was released and the fat pad was mostly excised. The knee was flexed and the ACL, PCL, and meniscus were removed. A drill was sent down the center of the femoral canal followed by an intramedullary stephanie. Off that stephanie a distal femoral cutting block was placed. 9 mm was resected off the distal femur at 5 of valgus. A posterior referencing AP sizing guide was then placed on the distal femur. The femur measured to be a size 5 narrow. 2 drill holes were placed in 3 of external rotation. A 4-in-1 cutting block was then impacted into place. Anterior, posterior, and chamfer cuts were then made. The proximal tibia was then exposed. An external tibial alignment guide was placed. A tibial cut guide was then anchored in place and the proximal tibia was then resected. The posterior aspect of the knee was then opened up and any additional meniscus fragments and osteophytes were removed. The tibia measured to be a size C. The tibial plate was then placed in the appropriate rotation and the tibia was drilled and punched. Trial components were then placed. I used a size 12 medial congruent polyethylene insert. The knee was brought through a full range of motion and felt to be stable. The peg holes for the femoral component were then drilled. The patella was then everted and 9 mm was resected off the posterior aspect of the patella. The patella measured to be a size 31 oval. 3 peg holes were then drilled. A trial patella was placed. The knee was once again brought through a full range of motion and felt to be stable. Trial components were then removed. The surrounding soft tissues were injected with 100 cc of an orthopedic pain control cocktail. All components were then cemented into place with Biomet cement. The final polyethylene insert was then snapped into place. Once cement was dry the tourniquet was deflated. Hemostasis was obtained. A dilute betadyne lavage was then done for 3 minutes. The joint was then irrigated with normal saline solution. The subvastus arthrotomy was then closed with #1 Vicryl suture. The skin was closed with 2-0 Vicryl, 3-0V lock suture, and albino. A soft compressive dressing was placed. She was then transferred to a hospital bed and taken to the postanesthesia care unit in stable condition. She tolerated the procedure well. Nas Goodman PA-C, was present for the entire procedure. He was critical for patient positioning, prepping, draping, retraction exposure, wound closure and application of sterile dressing. I attest to the content of the Intraoperative Record and any orders documented therein. Any exceptions are noted below.
[2021-08-27] MEDS ORDERED: oxyCODONE/ACETAMINOPHEN 5mg/325mg TAB PO PRN (10:38)
--- NOTE | 2021-08-27 11:41 | XRay Report ---
XR knee RT 1 or 2V routine CLINICAL HISTORY: Postoperative evaluation. COMPARISON: Knee radiograph June 14, 2021. FINDINGS: Alignment of the total right knee arthroplasty is anatomic. There is no periprosthetic fra cture or unexpected radiopaque foreign body. There are skin albino. IMPRESSION: Expected findings following total right knee arthroplasty. ACT 112: Negative or not required by law. Electronically signed by: Gopal Brito M.D. 08/27/2021 11:40 AM
--- NOTE | 2021-08-27 11:57 | Anesthesiology Progress Note ---
Date of Service August 27, 2021 Anesthesia Post Procedure Vital Signs Vital Signs: Temp Pulse Pulse Resp BP Pulse Ox 08/27/21 11:15 36.2 C L 63 16 107/73 92 08/27/21 11:05 65 16 99/57 L 92 08/27/21 10:57 36.0 C L 50 L 16 91/52 L 91 08/27/21 07:14 37 C 89 20 146/78 H 97 Transfer of Care Handoff Completed per policy Notes Mental Status: alert / awake / arousable Patient Amnestic to Procedure: Yes Nausea / Vomiting: adequately controlled Pain: adequately controlled Airway Patency, RR, SpO2: stable & adequate BP & HR: stable & adequate Hydration State: stable & adequate Neuraxial Anesthesia: was administered and sensory block is resolving Anesthetic Complications: no major complications apparent
--- NOTE | 2021-08-27 11:57 | Anesthesia Procedure Note ---
Date of Service August 27, 2021 Anesthesia Post Epidural Note Vital Signs Vital Signs: Temp Pulse Resp BP Pulse Ox 36.5 C 63 16 103/59 L 92 08/27/21 11:30 08/27/21 11:30 08/27/21 11:30 08/27/21 11:30 08/27/21 11:30 Notes Mental Status: alert / awake / arousable Nausea / Vomiting: adequately controlled Pain: adequately controlled Airway Patency, RR, SpO2: stable & adequate BP & HR: stable & adequate Hydration State: stable & adequate Neuraxial Anesthesia: was administered and sensory block is resolving Anesthetic Complications: no major complications apparent and Pt Satisfied with anesthetic care Epidural: Removed without complications and With tip intact
[2021-08-27] MEDS ORDERED: oxyCODONE HCL IR 5 MG TAB (IMMEDIATE RELEASE) PO PRN (16:54)
[2021-08-27] MEDS ORDERED: METOCLOPRAMIDE HCL INJ 5 MG/ML 2 ML VIAL IV PRN (16:54)
[2021-08-27] MEDS ORDERED: bisacodyL 10 MG SUPP PR PRN (16:54)
[2021-08-27] MEDS ORDERED: HYDROmorphone INJ 0.5 MG/0.5 ML SYR IV PRN (16:54)
[2021-08-27] MEDS ORDERED: MAGNESIUM HYDROXIDE SUSP 30 ML UDC PO PRN (16:54)
[2021-08-27] MEDS ORDERED: NALOXONE HCL 0.4 MG/1 ML VIAL/CARP IV PRN (16:54)
[2021-08-27] MEDS ORDERED: ONDANSETRON 4 MG OD TAB PO PRN (17:02)
[2021-08-27] MEDS ORDERED: ACETAMINOPHEN 500 MG TAB PO PRN (17:40)
[2021-08-27] MEDS ORDERED: SODIUM CHLORIDE 0.9% 1000ML 1,000 ML IV SCH (18:00)
[2021-08-27] MEDS ORDERED: MULTIVITAMIN TAB PO SCH (21:00)
[2021-08-27] MEDS ORDERED: SENNA 8.6 MG TAB PO SCH (21:00)
[2021-08-27] MEDS ORDERED: MELATONIN 3 MG TAB PO SCH (21:00)
[2021-08-27] MEDS: ASPIRIN 81 MG ECTAB PO SCH (21:16)
[2021-08-27] MEDS: DOCUSATE SODIUM 100 MG CAP PO SCH (21:16)
[2021-08-27] MEDS: CeleBREX 200 MG CAP PO SCH (21:16)
[2021-08-27] MEDS: ceFAZolin 1000MG 1,000 MG/7.5 ML SYR IV SCH (21:19)
[2021-08-28] MEDS: ceFAZolin 1000MG 1,000 MG/7.5 ML SYR IV SCH (06:13)
--- NOTE | 2021-08-28 06:56 | Orthopedic Progress Note ---
Date of Service August 28, 2021 Assessment & Plan (1) Status post right knee replacement: Overall she seems to be doing better. She will be seen by physical therapy today for ambulation and range of motion exercises. She is on aspirin for DVT prophylaxis. If she participates well with physical therapy then she can be discharged home. She will follow-up with orthopedics in 2 weeks. The dressing can be changed after physical therapy today and a SIOM[place] hose stocking applied to the right leg. Job Montoya was seen and examined at bedside this morning. Overall she is doing better. She can move her ankle and she can do a straight leg raise, but she still says she has some difficulty putting full weight on her right knee. She is not having much pain. She had no acute events overnight. Review of Systems All systems reviewed & are unremarkable except as noted in HPI & below. Physical Exam On physical examination of the right knee, the dressing is clean and dry. His leg is out full extension. She has active dorsiflexion plantarflexion of her right ankle. Sensation is intact throughout. She can do a straight leg raise. Results & Data Results & Data Laboratory Results . Diagnostic Findings Postoperative x-rays of the right knee show the prosthesis to be in anatomic alignment without any evidence of fracture, screws, or loosening. PG Care Time/CCT Total # of Minutes Spent Total Time Spent with Patient: Total time spent is greater than 50% in coordination of care (as documented) at patient's floor/unit and/or counseling patient: Coding Level of Care Code 78033 Post Operative Follow-Up Diagnoses Status post right knee replacement Z96.651
--- NOTE | 2021-08-28 06:58 | Discharge Summary ---
Date of Service August 28, 2021 Admission HPI (Per Admitting) Lindsay is a pleasant 61-year-old female has been dealing with chronic increasing right knee pain. She has failed extensive conservative treatment including physical therapy, multiple injections, and activity modification. MRI shows significant osteoarthritis of the right knee. After failing conservative treatment, she has elected to proceed with a right total knee arthroplasty. Admission Exam (Per Admitting) On physical examination of the right knee, she has a slight varus deformity. She has pain along the medial joint line and the distal medial femoral condyle. She has a trace effusion. Principal Diagnosis Same as "Discharge Diagnosis" noted below under Discharge Instructions. Discharge Exam On physical examination of the right knee, the dressing is clean and dry. His leg is out full extension. She has active dorsiflexion plantarflexion of her right ankle. Sensation is intact throughout. She can do a straight leg raise. Discharge Data Procedures Performed Operation Date: 07/23/21 08:40 <No data on this case meets the specified criteria> Operation Date: 08/27/21 08:50 Actual Procedures p Right Total Knee Arthroplasty, Cemented(Right) - Nas Bentley DO Ordered Studies 08/27/21 05:00 US - OR guided needle placemen Routine Hospital Course (1) Status post right knee replacement: On August 27, 2021 Lindsay arrived at [facility] and underwent a right knee replaced without complication. She had an epidural anesthetic. Postoperatively she was in our outpatient joint protocol. She was able to move her ankle and was able to do a straight leg raise, however, when she put weight on it with therapy she continued stated that she felt like her knee was going to buckle. They tried a knee immobilizer and she was still unable to bear weight. At this time the decision was made to keep her overnight. On postop day #1 she was doing better. She felt like she had a little bit more strength in her right leg. She was able to participate well with physical therapy doing ambulation and range of motion exercises. She was then discharged home. She will follow-up with orthopedics in 2 weeks. PG Care Time/CCT Total # of Minutes Spent Total Time Spent with Patient: Total time spent is greater than 50% in coordination of care (as documented) at patient's floor/unit and/or counseling patient: Discharge Plan Discharge Items Patient Disposition: Home - Home Health Services Reason For Visit: Degenerative Joint Disease Right Knee Discharge Diagnosis: Status post right knee replacement Activity: As commented below Non-emergency contact: Surgeon Call non-emergency contact if: your wound has increased redness and your wound has increased drainage Follow-up/Referrals: Julianna Hobson MD [Primary Care Provider] - Nas Bentlye DO [Physician] - [facility] [Non-Staff] - (per surgeon's office) Diet: Regular Addtl Attending Provider Instructions: Activity and Therapy Recommendations: * If you are using [facility] then therapy will be provided at your home until they feel you have accomplished all of your goals. * If you are using [facility] then Physical Therapy will be provided until they feel you are ready to start Outpatient Physical Therapy. * If you are not using home therapy then Outpatient Physical Therapy should start about 3-5 days from your day of surgery. Therapy will last about 6-10 weeks * It is important not to put a pillow under your knee when you are relaxing or s leeping. It is just as important to make sure you are getting your knee perfectly straight as it is to regain your knee bend. * You were shown a series of exercises in the hospital. Do these exercises three times each day including the exercises you were shown in physical therapy. * Get up and walk several times each day. For the first four weeks, try not to stand or walk for more than one hour at a time. If you do stand or walk for more than one hour, you will not hurt anything, but your leg will likely swell. * As you feel comfortable, you may change from the walker or crutches to a cane and then to independent walking. Medications: * Narcotic You will likely be sent home from the hospital with a prescription for the narcotic pain medication that worked best throughout your stay. * Aspirin Most patients will be required to take Aspirin 81mg twice a day for 6 weeks after surgery. This is obtained [id number] and a prescription is not necessary. * Other medications may be prescribed for specific circumstances. If you have any questions, please call the office at . * Resume previous home medications unless otherwise instructed TEDs/Elastic Stockings: The white elastic stockings help limit swelling and prevent blood clots from forming in your legs.~ The more you wear them, the more they work. Wear them for six weeks. Dressing Care: The dressing can be changed after physical therapy on postop day #1. Daily dry dressing changes for a few days, especially if the incision is still draining some. If the incision is not draining then you may leave the albino open to air. If there is a little bit of drainage or if the albino are getting stuck on your clothing then cover the incision with a dry dressing. The albino will be removed at your 2 week follow-up appointment. Showering: You may shower 5 days from the day of surgery as long as the incision is no longer draining. You may shower with the albino exposed. Let soapy water run over the albino and pat them dry. Do not scrub or soak the incision. Things To Watch For: * Drainage from the incision site that occurs more than one week after your surgery. * Increased redness at the incision site. * Fever above 102 degrees Fahrenheit. * Unusual chest pain or shortness of breath. * Call [facility] at with any of the above problems Follow-Up Visit: Follow-up with Dr. Bentley's PA (Nas Goodman) 2-3 weeks after your day of surgery. He will remove your albino and answer any questions. If you have any additional questions or concerns, Dr Bentley is usually in the office at the same time and will be available An appointment was probably scheduled when you signed-up for surgery in the office. If you have any questions call Office Instructions: More detailed instructions as well as Frequently Asked Questions were provided in a folder by our office when you signed-up for surgery. Please review these instructions when you get home. If you have any further questions or concerns, please feel free to call the office at [phone] Pending Studies at Discharge: No Stand-Alone Forms: Anesthesia/Sedation, Adult, [facility] Medications and DC Order Prescriptions: New oxycodone-acetaminophen 5-325 mg tablet 1 tab PO Q6H PRN (Reason: pain) Qty: 30 RF: 0 aspirin [Adult Aspirin Regimen] 81 mg tablet,delayed release (DR/EC) 81 mg PO BID Qty: 84 RF: 0 Continued ondansetron HCl 4 mg tablet 4 mg PO Q8H PRN (Reason: nausea and vomiting) Qty: 10 RF: 0 celecoxib [Celebrex] 200 mg capsule 200 mg PO BID Qty: 28 RF: 0 (DME) 3-in-1 Commode Misc See Rx Instructions .MEDSUPPLY Qty: 1 RF: 0 (DME) Wheeled Walker Misc See Rx Instructions .MEDSUPPLY Qty: 1 RF: 0 atorvastatin [Lipitor] 20 mg tablet 20 mg PO QAM RF: 0 cetirizine [Zyrtec] 10 mg Tablet 10 mg PO QAM RF: 0 ibuprofen 400 mg Tablet 400 - 600 mg PO BID RF: 0 hydrochlorothiazide 12.5 mg capsule 12.5 mg PO QAM RF: 0 irbesartan 75 mg Tablet 75 mg PO QAM RF: 0 melatonin 5 mg Tablet 5 mg PO HS RF: 0 Centrum Silver Women 8 mg iron-400 mcg-300 mcg Tablet 1 tab PO HS RF: 0 Discontinued hydrocodone-acetaminophen 5-325 mg tablet 1 tab PO Q6H PRN (Reason: pain) Qty: 30 RF: 0 Discharge Orders: Discharge Order (Routine); Ordered 08/28/21 Ordered By: Nas Christian/Other Patient Handouts: Preventing Deep Vein Thrombosis Admission Data Admit Date/Time: 08/27/21 15:35 Attending Provider: Nas Bentley Admit Provider: Nas Bentley Primary Care Provider: Julianna Hobson
[2021-08-28] MEDS ORDERED: dexAMETHasone 4 MG TAB PO SCH (08:00)
[2021-08-28] MEDS ORDERED: ATORVASTATIN 20 MG TAB PO SCH (09:00)
[2021-08-28] MEDS ORDERED: hydroCHLOROthiazide 25 MG TAB PO SCH (09:00)
[2021-08-28] MEDS ORDERED: CETIRIZINE HCL 10 MG TABLET PO SCH (09:00)
[2021-08-28] MEDS ORDERED: IRBESARTAN 75 MG TAB PO SCH (09:00)
[2021-08-28] MEDS: ASPIRIN 81 MG ECTAB PO SCH (09:01)
[2021-08-28] MEDS: CeleBREX 200 MG CAP PO SCH (09:02)
[2021-08-28] MEDS: DOCUSATE SODIUM 100 MG CAP PO SCH (09:02)
== END 2021-08-28 13:23 | disposition home health service (06) ==
LOC: 3E 06:47 → ASU 06:47